=== PATIENT | male | born 1980 | race Caucasian/White ===

== ENCOUNTER 2016-11-29 12:01 | Emergency (ER) | payer OTHER ==
[~2016-11-29] VITALS: Ht 154.9 cm; Wt 93.0 kg
[~2016-11-29 12:01] MED LIST: NOHOMEMEDS
[2016-11-29 12:52] LABS: ADD MIUA? YES; BILIRUBIN NEGATIVE; BLOOD NEGATIVE; COLOR YELLOW ((YELLOW)); GLUCOSE (STRIP) NEGATIVE; KETONES NEGATIVE; LEUKOCYTES NEGATIVE; NITRITE NEGATIVE; PROTEIN (STRIP) NEGATIVE; SPECIFIC GRAVITY 1.013 (1.000-1.030); UROBILINOGEN 0.2 MG/DL (0.2-1.0)
[2016-11-29 12:55] LABS: BACTERIA RARE /HPF; EPITHELIAL CELLS RARE /HPF; HYALINE CASTS 0-5 /LPF; MUCUS TRACE /LPF; RED BLOOD CELLS 0-5 /HPF (0-5); WHITE BLOOD CELLS 0-5 /HPF (0-5)
[2016-11-29 13:10] LABS: EOSINOPHIL (%) 1.9 % (0-5); EOSINOPHIL COUNT 0.1 K/uL (0-0.3); HEMATOCRIT 45.4 % (38.0-50.0); IMMATURE GRANULOCYTE (%) 0.3 % (0.0-0.7); INSTRUMENT ABS NEUTROPHIL CT 3.5 K/uL; LYMPHOCYTE COUNT 2.2 K/uL (1.0-2.8); MCH 27.5 PG (29.0-34.0); MCV 83.3 FL (86-99); MEAN PLAT.VOLUME 9.5 uM^3 (9.0-12.4); MONOCYTE (%) 7.1 % (3-12); MONOCYTE COUNT 0.5 K/uL (0-0.8); NEUTROPHIL (%) 55.6 % (45-76); NEUTROPHIL COUNT 3.5 K/uL (1.8-6.4); PLATELET COUNT 209 K/uL (156-360); RBC DIS.WIDTH-CV 13.1 % (11.8-14.6); RED BLOOD COUNT 5.45 M/uL (4.00-5.50); WHITE BLOOD COUNT 6.3 K/uL (4.1-10.2)
[2016-11-29 13:21] LABS: CHLORIDE 101 mEq/L (99-109); POTASSIUM 3.5 mEq/L (3.7-5.4); SODIUM 140 mEq/L (136-147)
[2016-11-29 13:23] LABS: GLUCOSE 76 mg/dL (70-99)
[2016-11-29 13:24] LABS: ANION GAP 10 MEQ/L (2-14)
[2016-11-29 13:25] LABS: TOTAL BILIRUBIN 0.4 mg/dL (0.0-1.0)
[2016-11-29 13:27] LABS: ALKALINE PHOSPHATASE 81 IU/L (3-129); GFR ESTIMATE (CALCULATED) > 59 mL/min/
[2016-11-29 13:28] LABS: UREA NITROGEN (BUN) 5 mg/dL (9-23)
[2016-11-29 13:30] LABS: LIPASE 26 U/L (1.0-51.0)
[2016-11-29] MEDS ORDERED: LYRICA300 MG PO (13:53)
[2016-11-29] MEDS ORDERED: PANTOPRAZOLE SO40 MG PO (13:53)
[2016-11-29] MEDS ORDERED: CETIRIZINE HCL10 M2 PO (13:53)
[2016-11-29] MEDS ORDERED: MELOXICAM15 MG PO (13:53)
[2016-11-29] MEDS ORDERED: DIAZEPAM5 MG PO (13:53)
[2016-11-29] MEDS ORDERED: TIZANIDINE HCL4 MG PO (13:54)
[2016-11-29] MEDS ORDERED: PRILOSEC20 MG PO (14:52)
[2016-11-29 15:09] VITALS: BP 120/90
== END 2016-11-29 15:17 | disposition home or self-care (01) ==
LOC: EME 12:01
PROVIDERS: Emergency Medicine
DX: R10.13 Epigastric pain (principal); F17.200 Nicotine dependence, unspecified, uncomplicated
CPT/HCPCS: 76705; 80053; 81003; 83690; 85025; 93005; 99281; 99284; J2405; J3010; J7030

== ENCOUNTER 2016-12-21 14:01 | Emergency (ER) | payer OTHER ==
[~2016-12-21] VITALS: Ht 154.9 cm; Wt 95.0 kg
[~2016-12-21 14:01] MED LIST changes: +CETIRIZINE HCL10 M2 PO; +DIAZEPAM5 MG PO; +LYRICA300 MG PO; +MELOXICAM15 MG PO; +PANTOPRAZOLE SO40 MG PO; +PRILOSEC20 MG PO; +TIZANIDINE HCL4 MG PO
[2016-12-21 14:58] LABS: HEMATOCRIT 45.5 % (38.0-50.0); MCH 27.9 PG (29.0-34.0); MCHC 33.6 G/DL (30.0-36.0); MCV 82.9 FL (86-99); MEAN PLAT.VOLUME 10.2 uM^3 (9.0-12.4); PLATELET COUNT 223 K/uL (156-360); RBC DIS.WIDTH-CV 12.9 % (11.8-14.6); RBC DIS.WIDTH-SD 38.7 % (39-53); RED BLOOD COUNT 5.49 M/uL (4.00-5.50); WHITE BLOOD COUNT 6.9 K/uL (4.1-10.2)
[2016-12-21 15:09] LABS: CHLORIDE 106 mEq/L (99-109); POTASSIUM 3.9 mEq/L (3.7-5.4); SODIUM 139 mEq/L (136-147)
[2016-12-21 15:11] LABS: GLUCOSE 100 mg/dL (70-99)
[2016-12-21 15:12] LABS: ANION GAP 11 MEQ/L (2-14)
[2016-12-21 15:13] LABS: TOTAL BILIRUBIN 0.2 mg/dL (0.0-1.0)
[2016-12-21 15:14] LABS: ALKALINE PHOSPHATASE 93 IU/L (3-129)
[2016-12-21 15:15] LABS: GFR ESTIMATE (CALCULATED) > 59 mL/min/
[2016-12-21 15:16] LABS: UREA NITROGEN (BUN) 11 mg/dL (9-23)
[2016-12-21 15:18] LABS: LIPASE 51 U/L (1.0-51.0)
[2016-12-21 15:19] LABS: ADD MIUA? NO; BILIRUBIN NEGATIVE; BLOOD NEGATIVE; COLOR STRAW ((YELLOW)); GLUCOSE (STRIP) 150; KETONES NEGATIVE; LEUKOCYTES NEGATIVE; NITRITE NEGATIVE; PROTEIN (STRIP) NEGATIVE; SPECIFIC GRAVITY 1.008 (1.000-1.030); UCUL ADDED? NO; UROBILINOGEN 0.2 MG/DL (0.2-1.0)
[2016-12-21] MEDS ORDERED: BENTYL10 MG PO (18:38)
[2016-12-21] MEDS ORDERED: ZOFRAN ODT4 MG PO (18:38)
[2016-12-21 18:55] VITALS: BP 143/76
== END 2016-12-21 18:57 | disposition home or self-care (01) ==
LOC: EME 14:01
DX: R10.84 Generalized abdominal pain (principal); R11.0 Nausea; R14.0 Abdominal distension (gaseous); R06.00 Dyspnea, unspecified; M54.9 Dorsalgia, unspecified; R91.1 Solitary pulmonary nodule; F17.200 Nicotine dependence, unspecified, uncomplicated
CPT/HCPCS: 74177; 80053; 81003; 83690; 85027; 99281; 99284; J1885; J7030

== ENCOUNTER 2017-04-20 17:13 | Emergency (ER) | payer OTHER ==
[~2017-04-20] VITALS: Ht 154.9 cm; Wt 90.6 kg
[~2017-04-20 17:13] MED LIST changes: +BENTYL10 MG PO; +ZOFRAN ODT4 MG PO
[2017-04-20 19:22] VITALS: BP 118/71
== END 2017-04-20 19:24 | disposition home or self-care (01) ==
LOC: EME 17:13
DX: S80.02XA Contusion of left knee, initial encounter (principal); W10.9XXA Fall (on) (from) unspecified stairs and steps, initial encounter; Y93.89 Activity, other specified; F17.200 Nicotine dependence, unspecified, uncomplicated; Z88.5 Allergy status to narcotic agent; Z88.0 Allergy status to penicillin; Z88.6 Allergy status to analgesic agent; Z88.8 Allergy status to other drugs, medicaments and biological substances
CPT/HCPCS: 73564; 99281; 99284

== ENCOUNTER 2017-04-29 17:56 | Emergency (ER) | payer OTHER ==
[~2017-04-29] VITALS: Ht 154.9 cm; Wt 93.4 kg
[2017-04-29] MEDS ORDERED: LIDODERM 5% P1 PATCH TD (20:34)
[2017-04-29] MEDS ORDERED: VALIUM5 MG PO (20:34)
[2017-04-29 21:44] VITALS: BP 141/93
== END 2017-04-29 21:47 | disposition home or self-care (01) ==
LOC: EME 17:56
DX: M54.41 Lumbago with sciatica, right side (principal); M25.562 Pain in left knee; Z88.5 Allergy status to narcotic agent; Z88.0 Allergy status to penicillin
CPT/HCPCS: 73564; 99281; 99284

== ENCOUNTER 2017-12-16 23:35 | Emergency (ER) | payer OTHER ==
[~2017-12-16] VITALS: Ht 154.9 cm; Wt 86.4 kg
[~2017-12-16 23:35] MED LIST changes: +LIDODERM 5% P1 PATCH TD; +VALIUM5 MG PO
[2017-12-16 23:44] VITALS: BP 119/72
[2017-12-17] MEDS ORDERED: PERCOCET 5/31 TABLET PO (00:54)
== END 2017-12-17 02:16 | disposition home or self-care (01) ==
LOC: EME 23:35
PROC: 2W3QX1Z Immobilization of Right Lower Leg using Splint (ICD-10-PCS; principal; 2017-12-17)
DX: S92.211A Displaced fracture of cuboid bone of right foot, initial encounter for closed fracture (principal); X50.1XXA Overexertion from prolonged static or awkward postures, initial encounter; Y92.480 Sidewalk as the place of occurrence of the external cause; Z88.5 Allergy status to narcotic agent; Z88.0 Allergy status to penicillin; Z88.6 Allergy status to analgesic agent
CPT/HCPCS: 73610; 99281; 99283